=== PATIENT | male | born 1995 ===

== ENCOUNTER 2020-10-06 16:19 | Emergency (ER) | payer SELFPAY ==
[~2020-10-06] VITALS: Ht 185.4 cm; Wt 131.8 kg
[2020-10-06] MEDS ORDERED: IV NORMAL SALINE 1,000ML 1,000 ML IV ONE (17:30)
[2020-10-06] MEDS ORDERED: KETOROLAC 30 MG/ML VIAL. IVP ONE (17:30)
[2020-10-06] MEDS ORDERED: IOHEXOL 300 MG/ML 75 ML VIAL. IV ONE (17:45)
[2020-10-06 18:05] LABS: BASO % 0 % (0-3); EOS % 0 % (0-3); HEMATOCRIT 50.2 % (39.0-53.0); HEMOGLOBIN 16.4 g/dL (13.0-17.5); LYMPH # 1.5 x10^3/uL (1.0-4.8); LYMPH % 14 % (24-48); MEAN CORPUSCULAR HEMOGLOBIN 29 pg (25-35); MEAN CORPUSCULAR HGB CONC 33 g/dL (31-37); MEAN CORPUSCULAR VOLUME 89 fL (79-100); MONO # 0.5 x10^3/uL (0.0-1.1); MONO % 5 % (0-9); NEUT # 8.5 x10^3uL (1.8-7.7); NEUT % 81 % (31-73); PLATELET COUNT 258 x10^3/uL (140-400); RED BLOOD COUNT 5.67 x10^6/uL (4.30-5.70); RED CELL DISTRIBUTION WIDTH 14.1 % (11.5-14.5); WHITE BLOOD COUNT 10.5 x10^3/uL (4.0-11.0)
--- NOTE | 2020-10-06 18:15 | PHYS DOC ---
Past History Past Medical History: No Pertinent History (DINESH ORTIZ APRN) Past Surgical History: No Surgical History (DINESH ORTIZ APRN) Alcohol Use: None (DINESH ORTIZ APRN) Adult General Chief Complaint Chief Complaint: URINARY RETENTION HPI HPI Patient is a 25-year-old male presents to the emergency department complaining of a sudden onset of right flank pain, patient states it felt like someone hitting him in the side with a 2 x 4. Patient states this feels much like his kidney stone he had 4 years ago. Patient denies seeing any blood in his urine. Patient states that he has had some decreased urination since the pain. Patient states he has not taken anything for his pain. Patient denies being a cigarette smoker, denies alcohol consumption denies illicit drug use. Patient denies any surgical history. Patient states he does not have any allergies to medications and does not take any prescription medications at home. Patient denies nausea, vomiting, diarrhea, chest pain, chest congestion, nasal congestion, skin rashes, fever or chills. Patient rates his pain a 10/10 on a 1-10 pain scale. Patient states that he had broke out in a sweat because his pain was so bad earlier today. Patient also complains of right testicular pain for the past 2 days. Patient states he last had sex 4 days ago. Patient denies any penile discharge, denies STI concerns. (DINESH ORTIZ APRN) Review of Systems Review of Systems 14 body systems of review of systems have been reviewed. See HPI for pertinent positives and negative responses, otherwise all other systems are negative, nonpertinent or noncontributory. (DINESH ORTIZ APRN) Current Medications Current Medications Current Medications Medications (Trade) Dose Ordered Sig/Bing Start Time Stop Time Status Last Admin Dose Admin Iohexol (Omnipaque 300 Mg/ml) 75 ml 1X ONCE 10/06/20 17:45 10/06/20 17:46 DC 10/06/20 17:53 75 ML Ketorolac Tromethamine (Toradol 30mg Vial) 30 mg 1X ONCE 10/06/20 17:30 10/06/20 17:31 DC 10/06/20 17:34 30 MG Sodium Chloride 1,000 ml @ 1,000 mls/hr 1X ONCE 10/06/20 17:30 10/06/20 18:29 10/06/20 17:34 1,000 MLS/HR (DINESH ORTIZ APRN) Allergies Allergies Allergies Coded Allergies Type Severity Reaction Last Updated Verified pineapple Allergy Unknown 10/06/20 Yes (DINESH ORTIZ APRN) Physical Exam Physical Exam Constitutional: Well developed, well nourished, no acute distress, non-toxic appearance. HENT: Normocephalic, atraumatic, bilateral external ears normal, oropharynx moist, no oral exudates, nose normal. Eyes: PERRLA, EOMI, conjunctiva normal, no discharge. Neck: Normal range of motion, no tenderness, supple, no stridor. Cardiovascular:Heart rate regular rhythm, no murmur Lungs & Thorax: Bilateral breath sounds clear to auscultation Abdomen: Bowel sounds normal, soft, no tenderness, no masses, no pulsatile masses. Skin: Warm, dry, no erythema, no rash. Back: Right-sided CVA tenderness, right-sided flank pain. Extremities: No tenderness, no cyanosis, no clubbing, ROM intact, no edema. Neurologic: Alert and oriented X 3, normal motor function, normal sensory function, no focal deficits noted. Psychologic: Affect normal, judgement normal, mood normal. : Positive cremasteric reflex, right testicle pain with palpation, epididymis does not appear swollen or different size from left epididymis. No testicular swelling appreciated. No penile discharge appreciated. Patient circumcised. (DINESH ORTIZ APRN) Current Patient Data Vital Signs Vital Signs Date Time Temp Pulse Resp B/P (MAP) Pulse Ox O2 Delivery O2 Flow Rate FiO2 10/06/20 16:24 97.8 70 16 138/76 (96) 98 Room Air Lab Results Laboratory Tests Test 10/06/20 17:32 White Blood Count 10.5 x10^3/uL (4.0-11.0) Red Blood Count 5.67 x10^6/uL (4.30-5.70) Hemoglobin 16.4 g/dL (13.0-17.5) Hematocrit 50.2 % (39.0-53.0) Mean Corpuscular Volume 89 fL (79-100) Mean Corpuscular Hemoglobin 29 pg (25-35) Mean Corpuscular Hemoglobin Concent 33 g/dL (31-37) Red Cell Distribution Width 14.1 % (11.5-14.5) Platelet Count 258 x10^3/uL (140-400) Neutrophils (%) (Auto) 81 % (31-73) H Lymphocytes (%) (Auto) 14 % (24-48) L Monocytes (%) (Auto) 5 % (0-9) Eosinophils (%) (Auto) 0 % (0-3) Basophils (%) (Auto) 0 % (0-3) Neutrophils # (Auto) 8.5 x10^3uL (1.8-7.7) H Lymphocytes # (Auto) 1.5 x10^3/uL (1.0-4.8) Monocytes # (Auto) 0.5 x10^3/uL (0.0-1.1) Eosinophils # (Auto) 0.0 x10^3/uL (0.0-0.7) Basophils # (Auto) 0.0 x10^3/uL (0.0-0.2) (DINESH ORTIZ APRN) EKG EKG [] (DINESH ORTIZ APRN) Radiology/Procedures Radiology/Procedures [] (DINESH ORTIZ APRN) Heart Score Risk Factors: Risk Factors: DM, Current or recent (<one month) smoker, HTN, HLP, family h istory of CAD, obesity. Risk Scores: Risk Factors: DM, Current or recent (<one month) smoker, HTN, HLP, family history of CAD, obesity. (DINESH ORTIZ APRN) Course & Med Decision Making Course & Med Decision Making Pertinent Labs and Imaging studies reviewed. (See chart for details) 25-year-old male, vital signs reviewed, presents emergency department with right flank pain and right testicular pain. Physical exam consistent with kidney stone, however right testicular exam concerning for epididymitis versus torsion, a CT abdomen pelvis without for kidney stone study ordered, sonogram of right testicle ordered to rule out torsion. ED plan CBC, CMP, UA, GC and Chlamydia UA, normal saline 1000 cc IV, IV Toradol. Patient's pain from 10/10 down to 0 pain after Toradol injection, CT revealed 5 mm stone in bladder, testicular sonogram concerning for right-sided epididymitis. We will treat in ER with 500 mg Rocephin, 500 mg Levaquin, presc ription for 500 mg Levaquin p.o. daily x10 days. Physical examination consistent with kidney stone, epididymitis, this is unlik efrain testicular torsion, orchitis, testicular trauma, scrotal abscess, testicular tumor, acute hernia, varicocele, or hydrocele. (DINESH ORTIZ APRN) Course & Med Decision Making Do not see or evaluate patient. Discussed patient with RECORDS MANAGER and agree with plan and disposition. (RAJ HERNADEZ MD) Dragon Disclaimer Dragon Disclaimer This electronic medical record was generated, in whole or in part, using a voice recognition dictation system. (DINESH ORTIZ APRN) Departure Departure: Impression: Primary Impression: Kidney stone on right side Additional Impression: Epididymitis Disposition: 01 DC HOME SELF CARE/HOMELESS Condition: GOOD Referrals: PCP,[facility] (PCP) LUZ FERGUSON MD Patient Instructions: Epididymitis, Kidney Stones Additional Instructions: Take medication as prescribed for the next 10 days, return to the emergency department for worsening symptoms or other concerns, please follow-up with urology if you do not pass the stone soon. Scripts Ibuprofen (IBUPROFEN) 600 Mg Tablet 600 MG PO TID PRN PRN for PAIN, #20 TAB 0 Refills Prov: DINESH ORTIZ APRN 10/06/20 Levofloxacin (LEVOFLOXACIN) 500 Mg Tablet 1 TAB PO DAILY for TESTICULAR INFECTION, #10 TAB 0 Refills Prov: DINESH ORTIZ APRN 10/06/20 Problem Qualifiers DINESH ORTIZ APRN Oct 06, 2020 18:15 RAJ HERNADEZ MD Oct 06, 2020 21:44
[2020-10-06 18:20] LABS: CALCIUM 8.7 mg/dL (8.5-10.1); CREATININE 1.1 mg/dL (0.7-1.3); GFR 82.2; POTASSIUM 4.1 mmol/L (3.5-5.1)
--- NOTE | 2020-10-06 18:24 | RAD ---
ADDENDUM #1 Addendum: There is a typo in the second line of the impression. This is mild right hydroureter and right hydron ephrosis due to a stone in the bladder on the right. Electronically signed by: Jermain Sandy III, MD (10/06/2020 8:17 PM) [facility] RE[facility] CT SCAN OF THE ABDOMEN AND PELVIS WITH IV CONTRAST. History: Reason: RT CVA TENDERNESS Omni 300 75cc / Spl. Instructions: / History: Comparison:None. Procedure: Contiguous axial images of the abdomen and pelvis were performed after the administration of 75 cc o f Omni 300 IV contrast. Oral contrast: No. Findings: Liver: Mildly hypoattenuating Spleen: Unremarkable Pancreas: Unremarkable Adrenal Glands: Unremarkable Kidneys: There is mild right hydroureter and hydronephrosis there is a 5 mm stone in the urinary blad piter near the right UVJ. The appendix is normal. The gallbladder appears normal. There is no mass or lymphadenopathy. There is no free air. There is no free fluid. The urinary bladder appears normal. Impression: 1. Fatty filtration liver. 2. Mild left hydronephrosis and left hydroureter secondary to a 5 mm stone in the urinary bladder chris r the left UVJ. End impression PQRS Compliance Statement: One or more of the following individualized dose reduction techniques were utilized for this examinat ion: 1. Automated exposure control 2. Adjustment of the mA and/or kV according to patient size 3. Use of iterative reconstruction technique Electronically signed by: Jermain Sandy III, MD (10/06/2020 6:21 PM) [facility]
[2020-10-06 18:25] LABS: ALBUMIN 3.5 g/dL (3.4-5.0); ALBUMIN/GLOBULIN RATIO 0.8 (1.0-1.7); TOTAL BILIRUBIN 0.6 mg/dL (0.2-1.0); TOTAL PROTEIN 7.7 g/dL (6.4-8.2)
[2020-10-06 19:18] LABS: BACTERIA,URINE 0 /HPF (0-FEW); BILIRUBIN,URINE NEG (NEG); CLARITY,URINE HAZY; COLOR,URINE YELLOW; GLUCOSE,URINE NEG (NEG); NITRITE,URINE NEG (NEG); RBC,URINE 20-40 /HPF (0-2); SQUAMOUS EPITHELIAL CELL,UR FEW /LPF; UROBILINOGEN,URINE 0.2 mg/dL (0.2 mg/dL)
--- NOTE | 2020-10-06 19:43 | RAD ---
Scrotal ultrasound: Reason for examination: Right testicular pain. Right testicle measures 3.3 x 3.3 x 2.1 cm in greatest dimension and shows normal vascular flow witho ut a focal lesion. There are small calcifications present. The right epididymal head is normal in siz e at 6.7 mm. There does appear to be some increased vascularity to the epididymis however which may r eflect epididymitis. No hydrocele or varicocele is seen. The left testicle measures 3.5 x 2.9 x 2.2 cm in greatest dimension and appears homogeneous with good vascular flow. There are some calcification present. The left epididymal head is normal in size at 5 .1 mm and there is normal vascularity to the epididymis. No hydrocele or varicocele is seen. IMPRESSION: Increased vascularity at the right epididymis and epididymitis cannot be excluded. Normal blood flow in the testicles bilaterally. Bilateral testicular calcifications. Electronically signed by: Joanne Prater MD (10/06/2020 7:41 PM) [place]
[2020-10-06] MEDS ORDERED: cefTRIAXone IM 1 GM VIAL IM ONE (20:45)
[2020-10-06] MEDS ORDERED: levoFLOXacin 500 MG TABLET PO ONE (20:45)
[2020-10-06] MEDS ORDERED: IBUP600T16 PO (20:54)
[2020-10-06] MEDS ORDERED: LEVO500T8 PO (20:54)
[2020-10-06 21:03] VITALS: BP 132/68
== END 2020-10-06 21:03 | disposition home or self-care (01) ==
LOC: ER 16:19
DX: N13.2 Hydronephrosis with renal and ureteral calculous obstruction (principal); N45.1 Epididymitis; Z91.013 Allergy to seafood
CPT/HCPCS: 36415; 74177; 76870; 80053; 81001; 83690; 85025; 87491; 87591; 96361; 96372; 96374; 99285; J0696; J1885; J7030; Q9967